=== PATIENT | male | born 1965 | race Caucasian/White ===

== ENCOUNTER → 2022-10-30 14:06 | Outpatient (CLI) | payer OTHER, SELFPAY ==
[2022-10-30 19:35] LABS: Hematocrit 35.3 % (41-53); Hemoglobin 11.7 g/dL (13.5-17.5); Mean Corpuscular HGB Conc 33.2 % (30-36); Mean Corpuscular Hemoglobin 24.9 PG (26-34); Mean Corpuscular Volume 74.8 fL (80-100); Platelet Count 215 X10^3/uL (150-400); Red Blood Cell Count 4.72 X10^6/uL (4.5-5.9); Red Cell Distribution Width 21.4 % (11.6-14.8); White Blood Cell Count 2.4 X10^3/uL (4.5-11.0)
[2022-10-30 19:39] LABS: Alanine Aminotransferase 63 IU/L (<50); Albumin Globulin Ratio 1.5 (1.0-2.8); Alkaline Phosphatase 107 U/L (38-126); Aspartate Aminotransferase 33 IU/L (17-59); BUN Creatinine Ratio 22.1 (6-22); Bilirubin Total 0.3 mg/dL (0.2-1.3); Bilirubin Unconjugated 0.1 mg/dL (0.0-1.1); Blood Urea Nitrogen 25 mg/dL (9-20); Calcium 8.9 mg/dL (8.4-10.2); Carbon Dioxide 26 mmol/L (22-32); Chloride 100 mmol/L (98-107); Estimated Glomerular Filt Rate > 60 mL/min (>60); Gamma Glutamyl Transpeptidase 63 U/L (15-73); Globulin 2.6 g/dL (1.7-4.1); Glucose 115 mg/dL (70-100); HEMOLYSIS < 15 (0-50); Magnesium 1.5 mg/dL (1.6-2.3); Phosphorous 3.2 mg/dL (2.5-4.5); Potassium 3.9 mmol/L (3.4-5.1); Sodium 135 mmol/L (137-145); Total Protein 6.6 g/dL (6.3-8.2)
[2022-10-30 19:50] LABS: Creatinine, Serum (CRCL) 1.14 mg/dL (0.66-1.25)
[2022-10-30 19:51] LABS: Creatinine Urine Random 77.7 mg/dL; Protein (Total) Urine Random 7 mg/dL (0-12)
[2022-10-30 19:54] LABS: Add Manual Diff / Slide Review YES
[2022-10-30 19:58] LABS: Anisocytosis 3+; Neutrophils Absolute Manual 528 /uL (3000-5900); Total Cells Counted 100
[2022-10-30 19:59] LABS: Ovalocytes 1+
[2022-10-30 20:16] LABS: INR 1.2 (0.9-1.3); Prothrombin Time 13.5 SECONDS (10.1-12.7)
[2022-10-30 20:26] LABS: Collection Time Urine 24 Hours; Creatinine Clearance Urine 89.9 mL/MIN; Total Protein 24 Hour Urine 133 mg/day (42-225); Total Volume Urine 1900 mL
[2022-10-31 13:37] LABS: Creat Clearance, Corrected 70.5 mL/MIN; Patient Height Urine 70 inches; Patient Weight Urine 230 lbs
[2022-11-03 13:40] LABS: CMV DNA, Quant Real Time PCR Negative (Negative)
[2022-11-06 07:38] LABS: Tacrolimus 13.2
== END ==
PROVIDERS: Internal Medicine Gastroenterology; Visit Provider Internal Medicine Gastroenterology
DX: Z94.4 Liver transplant status (principal); Z48.298 Encounter for aftercare following other organ transplant; Z79.899 Other long term (current) drug therapy
CPT/HCPCS: 80048; 80076; 80197; 82575; 82977; 83735; 84100; 84156; 85007; 85025; 85610; 87497

== ENCOUNTER → 2023-01-24 10:40 | Outpatient (CLI) | payer OTHER, SELFPAY ==
[2023-01-24 11:52] LABS: Hematocrit 38.5 % (41-53); Mean Corpuscular HGB Conc 33.9 % (30-36); Mean Corpuscular Hemoglobin 28.8 PG (26-34); Mean Corpuscular Volume 85.2 fL (80-100); Platelet Count 124 X10^3/uL (150-400); Red Blood Cell Count 4.52 X10^6/uL (4.5-5.9); Red Cell Distribution Width 15.9 % (11.6-14.8); White Blood Cell Count 11.6 X10^3/uL (4.5-11.0)
[2023-01-24 11:53] LABS: Add Manual Diff / Slide Review YES
[2023-01-24 12:30] LABS: Alanine Aminotransferase 64 IU/L (<50); Albumin Globulin Ratio 1.5 (1.0-2.8); Alkaline Phosphatase 95 U/L (38-126); Aspartate Aminotransferase 42 IU/L (17-59); BUN Creatinine Ratio 23.4 (6-22); Bilirubin Total 0.6 mg/dL (0.2-1.3); Bilirubin Unconjugated 0.5 mg/dL (0.0-1.1); Blood Urea Nitrogen 22 mg/dL (9-20); Calcium 9.4 mg/dL (8.4-10.2); Carbon Dioxide 29 mmol/L (22-32); Chloride 102 mmol/L (98-107); Estimated Glomerular Filt Rate > 60 mL/min (>60); Gamma Glutamyl Transpeptidase 49 U/L (15-73); Globulin 2.6 g/dL (1.7-4.1); Glucose 93 mg/dL (70-100); HEMOLYSIS < 15 (0-50); Magnesium 1.6 mg/dL (1.6-2.3); Phosphorous 2.7 mg/dL (2.5-4.5); Potassium 4.4 mmol/L (3.4-5.1); Sodium 137 mmol/L (137-145); Total Protein 6.6 g/dL (6.3-8.2)
[2023-01-24 12:31] LABS: INR 1.3 (0.9-1.3); Prothrombin Time 15.2 SECONDS (10.1-12.7)
[2023-01-24 13:07] LABS: Hypersegmented Neutrophils 1+; Neutrophils Absolute Manual 2204 /uL (3000-5900); RBC Morphology Normal Morphology; Total Cells Counted 100
[2023-01-26 18:12] LABS: CMV DNA, Quant Real Time PCR Positive < 200 IU/mL (Negative)
[2023-01-27 10:57] LABS: Tacrolimus 7.9
== END ==
PROVIDERS: Referring Provider Internal Medicine Gastroenterology; Visit Provider Internal Medicine Gastroenterology
DX: Z94.4 Liver transplant status (principal); Z48.298 Encounter for aftercare following other organ transplant; Z79.899 Other long term (current) drug therapy
CPT/HCPCS: 36415; 80048; 80076; 80197; 82977; 83735; 84100; 85007; 85025; 85610; 87497

== ENCOUNTER → 2023-07-21 10:02 | Outpatient (CLI) | payer OTHER, SELFPAY ==
[2023-07-21 18:59] LABS: Add Manual Diff / Slide Review NO; Basophils Absolute Auto 100 /uL (0-100); Basophils Percent Auto 0.8 % (0-2); Eosinophils Absolute Auto 200 /uL (0-450); Eosinophils Percent Auto 2.2 % (2-4); Hemoglobin 13.4 g/dL (13.5-17.5); Lymphocytes Absolute Auto 4700 /uL (1100-4500); Lymphocytes Percent Auto 43.2 % (25-40); Mean Corpuscular HGB Conc 33.5 % (30-36); Mean Corpuscular Hemoglobin 26.8 PG (26-34); Mean Corpuscular Volume 79.9 fL (80-100); Monocytes Absolute Auto 900 /uL (0-900); Monocytes Percent Auto 8.3 % (3-14); Neutrophils Absolute Auto 4900 /uL (1500-7000); Neutrophils Percent Auto 45.5 % (50-75); Platelet Count 197 X10^3/uL (150-400); Red Blood Cell Count 5.01 X10^6/uL (4.5-5.9); Red Cell Distribution Width 14.5 % (11.6-14.8); White Blood Cell Count 10.8 X10^3/uL (4.5-11.0)
[2023-07-21 19:07] LABS: Alanine Aminotransferase 26 IU/L (<50); Albumin 3.7 g/dL (3.5-5.0); Albumin Globulin Ratio 1.2 (1.0-2.8); Alkaline Phosphatase 93 U/L (38-126); Aspartate Aminotransferase 26 IU/L (17-59); BUN Creatinine Ratio 26.1 (6-22); Bilirubin Total 0.6 mg/dL (0.2-1.3); Bilirubin Unconjugated 0.3 mg/dL (0.0-1.1); Blood Urea Nitrogen 24 mg/dL (9-20); Calcium 9.4 mg/dL (8.4-10.2); Carbon Dioxide 28 mmol/L (22-32); Chloride 105 mmol/L (98-107); Estimated Glomerular Filt Rate > 60 mL/min (>60); Gamma Glutamyl Transpeptidase 44 U/L (15-73); Globulin 3.2 g/dL (1.7-4.1); Glucose 103 mg/dL (70-100); HEMOLYSIS < 15 (0-50); Magnesium 1.7 mg/dL (1.6-2.3); Phosphorous 2.5 mg/dL (2.5-4.5); Potassium 4.7 mmol/L (3.4-5.1); Sodium 136 mmol/L (137-145); Total Protein 6.9 g/dL (6.3-8.2)
[2023-07-21 19:18] LABS: INR 1.2 (0.9-1.3); Prothrombin Time 13.3 SECONDS (9.4-12.5)
== END ==
PROVIDERS: Visit Provider Internal Medicine Gastroenterology
DX: Z94.4 Liver transplant status (principal); Z48.298 Encounter for aftercare following other organ transplant; Z79.899 Other long term (current) drug therapy
CPT/HCPCS: 80048; 80076; 80197; 82977; 83735; 84100; 85025; 85610

== ENCOUNTER → 2023-08-18 09:57 | Outpatient (CLI) | payer OTHER, SELFPAY ==
[2023-08-18 19:50] LABS: INR 1.2 (0.9-1.3); Prothrombin Time 13.5 SECONDS (9.4-12.5)
[2023-08-18 20:16] LABS: Add Manual Diff / Slide Review NO; Basophils Absolute Auto 100 /uL (0-100); Basophils Percent Auto 0.5 % (0-2); Eosinophils Absolute Auto 300 /uL (0-450); Eosinophils Percent Auto 2.6 % (2-4); Hematocrit 41.1 % (41-53); Hemoglobin 13.9 g/dL (13.5-17.5); Lymphocytes Absolute Auto 6100 /uL (1100-4500); Lymphocytes Percent Auto 55.9 % (25-40); Mean Corpuscular HGB Conc 33.8 % (30-36); Mean Corpuscular Hemoglobin 26.8 PG (26-34); Mean Corpuscular Volume 79.4 fL (80-100); Monocytes Absolute Auto 900 /uL (0-900); Monocytes Percent Auto 8.3 % (3-14); Neutrophils Absolute Auto 3600 /uL (1500-7000); Neutrophils Percent Auto 32.7 % (50-75); Platelet Count 171 X10^3/uL (150-400); Red Blood Cell Count 5.17 X10^6/uL (4.5-5.9); Red Cell Distribution Width 15.2 % (11.6-14.8); White Blood Cell Count 10.9 X10^3/uL (4.5-11.0)
[2023-08-18 20:31] LABS: Alanine Aminotransferase 34 IU/L (<50); Albumin Globulin Ratio 1.3 (1.0-2.8); Alkaline Phosphatase 95 U/L (38-126); Aspartate Aminotransferase 33 IU/L (17-59); BUN Creatinine Ratio 17.2 (6-22); Bilirubin Total 0.7 mg/dL (0.2-1.3); Bilirubin Unconjugated 0.5 mg/dL (0.0-1.1); Blood Urea Nitrogen 20 mg/dL (9-20); Calcium 9.7 mg/dL (8.4-10.2); Carbon Dioxide 25 mmol/L (22-32); Chloride 105 mmol/L (98-107); Estimated Glomerular Filt Rate > 60 mL/min (>60); Gamma Glutamyl Transpeptidase 37 U/L (15-73); Glucose 118 mg/dL (70-100); HEMOLYSIS < 15 (0-50); Magnesium 1.6 mg/dL (1.6-2.3); Phosphorous 3.2 mg/dL (2.5-4.5); Potassium 4.8 mmol/L (3.4-5.1); Sodium 137 mmol/L (137-145)
== END ==
PROVIDERS: Internal Medicine Gastroenterology
DX: Z48.298 Encounter for aftercare following other organ transplant (principal); Z94.4 Liver transplant status; Z79.899 Other long term (current) drug therapy
CPT/HCPCS: 80048; 80076; 80197; 82977; 83735; 84100; 85025; 85610

== ENCOUNTER → 2023-09-12 09:10 | Outpatient (CLI) | payer OTHER, SELFPAY ==
[2023-09-12 19:23] LABS: Add Manual Diff / Slide Review NO; Basophils Absolute Auto 0 /uL (0-100); Basophils Percent Auto 0.5 % (0-2); Eosinophils Absolute Auto 300 /uL (0-450); Eosinophils Percent Auto 3.1 % (2-4); Hemoglobin 13.6 g/dL (13.5-17.5); Lymphocytes Absolute Auto 4100 /uL (1100-4500); Lymphocytes Percent Auto 48.6 % (25-40); Mean Corpuscular HGB Conc 33.9 % (30-36); Mean Corpuscular Hemoglobin 27.1 PG (26-34); Mean Corpuscular Volume 79.8 fL (80-100); Monocytes Absolute Auto 500 /uL (0-900); Monocytes Percent Auto 6.4 % (3-14); Neutrophils Absolute Auto 3500 /uL (1500-7000); Neutrophils Percent Auto 41.4 % (50-75); Platelet Count 164 X10^3/uL (150-400); Red Blood Cell Count 5.02 X10^6/uL (4.5-5.9); Red Cell Distribution Width 14.9 % (11.6-14.8); White Blood Cell Count 8.4 X10^3/uL (4.5-11.0)
[2023-09-12 19:30] LABS: Alanine Aminotransferase 31 IU/L (<50); Albumin 4.2 g/dL (3.5-5.0); Albumin Globulin Ratio 1.6 (1.0-2.8); Alkaline Phosphatase 93 U/L (38-126); Aspartate Aminotransferase 35 IU/L (17-59); BUN Creatinine Ratio 16.7 (6-22); Bilirubin Total 0.7 mg/dL (0.2-1.3); Bilirubin Unconjugated 0.2 mg/dL (0.0-1.1); Blood Urea Nitrogen 23 mg/dL (9-20); Calcium 9.1 mg/dL (8.4-10.2); Carbon Dioxide 24 mmol/L (22-32); Chloride 105 mmol/L (98-107); Estimated Glomerular Filt Rate 59 mL/min (>60); Gamma Glutamyl Transpeptidase 32 U/L (15-73); Globulin 2.7 g/dL (1.7-4.1); Glucose 115 mg/dL (70-100); HEMOLYSIS < 15 (0-50); Magnesium 1.6 mg/dL (1.6-2.3); Phosphorous 2.9 mg/dL (2.5-4.5); Potassium 4.7 mmol/L (3.4-5.1); Sodium 137 mmol/L (137-145); Total Protein 6.9 g/dL (6.3-8.2)
[2023-09-12 19:37] LABS: INR 1.1 (0.9-1.3); Prothrombin Time 12.9 SECONDS (9.4-12.5)
[2023-09-12 19:58] LABS: Testosterone 171 ng/dL (71.8-623)
== END ==
DX: Z48.298 Encounter for aftercare following other organ transplant (principal); M62.81 Muscle weakness (generalized); R68.82 Decreased libido; R60.0 Localized edema; E03.8 Other specified hypothyroidism; Z94.4 Liver transplant status; Z79.899 Other long term (current) drug therapy
CPT/HCPCS: 80048; 80076; 80197; 82977; 83735; 84100; 84270; 84403; 84439; 84443; 85025; 85610

== ENCOUNTER → 2023-10-13 09:44 | Outpatient (CLI) | payer OTHER, SELFPAY ==
[2023-10-13 19:51] LABS: INR 1.1 (0.9-1.3); Prothrombin Time 12.5 SECONDS (9.4-12.5)
[2023-10-13 20:02] LABS: Add Manual Diff / Slide Review NO; Basophils Absolute Auto 100 /uL (0-100); Basophils Percent Auto 0.7 % (0-2); Eosinophils Absolute Auto 200 /uL (0-450); Eosinophils Percent Auto 2.8 % (2-4); Hematocrit 40.9 % (41-53); Lymphocytes Absolute Auto 4200 /uL (1100-4500); Lymphocytes Percent Auto 48.4 % (25-40); Mean Corpuscular HGB Conc 34.1 % (30-36); Mean Corpuscular Hemoglobin 27.3 PG (26-34); Monocytes Absolute Auto 600 /uL (0-900); Monocytes Percent Auto 7.1 % (3-14); Neutrophils Absolute Auto 3600 /uL (1500-7000); Platelet Count 178 X10^3/uL (150-400); Red Blood Cell Count 5.12 X10^6/uL (4.5-5.9); Red Cell Distribution Width 13.9 % (11.6-14.8); White Blood Cell Count 8.7 X10^3/uL (4.5-11.0)
[2023-10-13 20:08] LABS: Alanine Aminotransferase 29 IU/L (<50); Albumin 4.3 g/dL (3.5-5.0); Albumin Globulin Ratio 1.4 (1.0-2.8); Alkaline Phosphatase 101 U/L (38-126); Aspartate Aminotransferase 32 IU/L (17-59); BUN Creatinine Ratio 19.3 (6-22); Bilirubin Total 0.7 mg/dL (0.2-1.3); Bilirubin Unconjugated 0.1 mg/dL (0.0-1.1); Blood Urea Nitrogen 22 mg/dL (9-20); Calcium 9.3 mg/dL (8.4-10.2); Carbon Dioxide 26 mmol/L (22-32); Chloride 106 mmol/L (98-107); Estimated Glomerular Filt Rate > 60 mL/min (>60); Gamma Glutamyl Transpeptidase 39 U/L (15-73); Globulin 3.1 g/dL (1.7-4.1); Glucose 108 mg/dL (70-100); HEMOLYSIS < 15 (0-50); Magnesium 1.9 mg/dL (1.6-2.3); Phosphorous 2.6 mg/dL (2.5-4.5); Sodium 137 mmol/L (137-145); Total Protein 7.4 g/dL (6.3-8.2)
[2023-10-13 20:33] LABS: TSH w/ Reflex to FT4 4.61 uIU/mL (0.47-4.68)
[2023-10-13 20:37] LABS: Testosterone 127 ng/dL (71.8-623)
[2023-10-15 07:11] LABS: Tacrolimus 8.6 ng/mL (2.0-20.0)
== END ==
PROVIDERS: Internal Medicine Gastroenterology
DX: Z48.298 Encounter for aftercare following other organ transplant (principal); E03.8 Other specified hypothyroidism; R79.89 Other specified abnormal findings of blood chemistry; M62.81 Muscle weakness (generalized); Z94.4 Liver transplant status; Z79.899 Other long term (current) drug therapy
CPT/HCPCS: 80048; 80076; 80197; 82977; 83735; 84100; 84403; 84443; 85025; 85610

== ENCOUNTER → 2023-11-10 10:17 | Outpatient (CLI) | payer OTHER, SELFPAY ==
[2023-11-10 20:25] LABS: Alanine Aminotransferase 21 IU/L (<50); Albumin 4.1 g/dL (3.5-5.0); Albumin Globulin Ratio 1.5 (1.0-2.8); Alkaline Phosphatase 90 U/L (38-126); Aspartate Aminotransferase 26 IU/L (17-59); BUN Creatinine Ratio 21.7 (6-22); Bilirubin Total 0.6 mg/dL (0.2-1.3); Bilirubin Unconjugated 0.1 mg/dL (0.0-1.1); Blood Urea Nitrogen 26 mg/dL (9-20); Carbon Dioxide 24 mmol/L (22-32); Chloride 106 mmol/L (98-107); Estimated Glomerular Filt Rate > 60 mL/min (>60); Gamma Glutamyl Transpeptidase 26 U/L (15-73); Globulin 2.7 g/dL (1.7-4.1); Glucose 114 mg/dL (70-100); HEMOLYSIS < 15 (0-50); INR 1.1 (0.9-1.3); Magnesium 1.6 mg/dL (1.6-2.3); Phosphorous 2.8 mg/dL (2.5-4.5); Potassium 4.7 mmol/L (3.4-5.1); Prothrombin Time 12.5 SECONDS (9.4-12.5); Sodium 137 mmol/L (137-145); Total Protein 6.8 g/dL (6.3-8.2)
[2023-11-10 20:33] LABS: Add Manual Diff / Slide Review NO; Basophils Absolute Auto 0 /uL (0-100); Basophils Percent Auto 0.4 % (0-2); Eosinophils Absolute Auto 200 /uL (0-450); Eosinophils Percent Auto 2.6 % (2-4); Hematocrit 38.3 % (41-53); Hemoglobin 12.9 g/dL (13.5-17.5); Lymphocytes Absolute Auto 4600 /uL (1100-4500); Lymphocytes Percent Auto 55.2 % (25-40); Mean Corpuscular HGB Conc 33.8 % (30-36); Mean Corpuscular Hemoglobin 26.9 PG (26-34); Mean Corpuscular Volume 79.5 fL (80-100); Monocytes Absolute Auto 500 /uL (0-900); Monocytes Percent Auto 6.4 % (3-14); Neutrophils Absolute Auto 3000 /uL (1500-7000); Neutrophils Percent Auto 35.4 % (50-75); Platelet Count 171 X10^3/uL (150-400); Red Blood Cell Count 4.82 X10^6/uL (4.5-5.9); Red Cell Distribution Width 13.8 % (11.6-14.8); White Blood Cell Count 8.3 X10^3/uL (4.5-11.0)
== END ==
PROVIDERS: Internal Medicine Gastroenterology
DX: Z94.4 Liver transplant status (principal); Z48.298 Encounter for aftercare following other organ transplant; Z79.899 Other long term (current) drug therapy
CPT/HCPCS: 80048; 80076; 80197; 82977; 83735; 84100; 85025; 85610

== ENCOUNTER → 2023-12-17 10:12 | Outpatient (CLI) | payer OTHER, SELFPAY ==
[2023-12-17 20:11] LABS: INR 1.2 (0.9-1.3); Prothrombin Time 13.5 SECONDS (9.4-12.5)
[2023-12-17 20:39] LABS: Add Manual Diff / Slide Review NO; Basophils Absolute Auto 0 /uL (0-100); Basophils Percent Auto 0.3 % (0-2); Eosinophils Absolute Auto 300 /uL (0-450); Eosinophils Percent Auto 2.8 % (2-4); Hematocrit 41.6 % (41-53); Hemoglobin 14.2 g/dL (13.5-17.5); Lymphocytes Absolute Auto 5200 /uL (1100-4500); Lymphocytes Percent Auto 53.7 % (25-40); Mean Corpuscular HGB Conc 34.1 % (30-36); Mean Corpuscular Hemoglobin 26.8 PG (26-34); Mean Corpuscular Volume 78.7 fL (80-100); Monocytes Absolute Auto 700 /uL (0-900); Monocytes Percent Auto 7.3 % (3-14); Neutrophils Absolute Auto 3500 /uL (1500-7000); Neutrophils Percent Auto 35.9 % (50-75); Platelet Count 174 X10^3/uL (150-400); Red Blood Cell Count 5.29 X10^6/uL (4.5-5.9); Red Cell Distribution Width 14.1 % (11.6-14.8); White Blood Cell Count 9.7 X10^3/uL (4.5-11.0)
[2023-12-17 20:51] LABS: Alanine Aminotransferase 49 IU/L (<50); Albumin 4.2 g/dL (3.5-5.0); Albumin Globulin Ratio 1.4 (1.0-2.8); Alkaline Phosphatase 109 U/L (38-126); Aspartate Aminotransferase 41 IU/L (17-59); BUN Creatinine Ratio 16.9 (6-22); Bilirubin Total 0.7 mg/dL (0.2-1.3); Bilirubin Unconjugated 0.2 mg/dL (0.0-1.1); Blood Urea Nitrogen 21 mg/dL (9-20); Calcium 9.7 mg/dL (8.4-10.2); Carbon Dioxide 26 mmol/L (22-32); Chloride 103 mmol/L (98-107); Estimated Glomerular Filt Rate > 60 mL/min (>60); Gamma Glutamyl Transpeptidase 50 U/L (15-73); Globulin 2.9 g/dL (1.7-4.1); Glucose 100 mg/dL (70-100); HEMOLYSIS 17 (0-50); Magnesium 1.6 mg/dL (1.6-2.3); Phosphorous 3.1 mg/dL (2.5-4.5); Potassium 4.7 mmol/L (3.4-5.1); Sodium 136 mmol/L (137-145); Total Protein 7.1 g/dL (6.3-8.2)
== END ==
PROVIDERS: Internal Medicine Gastroenterology
DX: Z94.4 Liver transplant status (principal); Z79.899 Other long term (current) drug therapy; Z48.298 Encounter for aftercare following other organ transplant
CPT/HCPCS: 80048; 80076; 80197; 82977; 83735; 84100; 85025; 85610

== ENCOUNTER → 2024-06-21 11:33 | Outpatient (CLI) | payer OTHER, SELFPAY ==
[2024-06-21 18:49] LABS: Prothrombin Time 11.4 SECONDS (9.4-12.5)
[2024-06-21 18:53] LABS: Add Manual Diff / Slide Review NO; Basophils Absolute Auto 0 /uL (0-100); Basophils Percent Auto 0.3 % (0-2); Eosinophils Absolute Auto 300 /uL (0-450); Eosinophils Percent Auto 3.1 % (2-4); Hematocrit 43.2 % (41-53); Hemoglobin 14.6 g/dL (13.5-17.5); Lymphocytes Absolute Auto 5400 /uL (1100-4500); Lymphocytes Percent Auto 57.3 % (25-40); Mean Corpuscular HGB Conc 33.9 % (30-36); Mean Corpuscular Hemoglobin 26.8 PG (26-34); Monocytes Absolute Auto 600 /uL (0-900); Monocytes Percent Auto 6.2 % (3-14); Neutrophils Absolute Auto 3100 /uL (1500-7000); Neutrophils Percent Auto 33.1 % (50-75); Platelet Count 177 X10^3/uL (150-400); Red Blood Cell Count 5.46 X10^6/uL (4.5-5.9); Red Cell Distribution Width 14.5 % (11.6-14.8); White Blood Cell Count 9.4 X10^3/uL (4.5-11.0)
[2024-06-21 19:11] LABS: Alanine Aminotransferase 29 IU/L (<50); Albumin 4.4 g/dL (3.5-5.0); Albumin Globulin Ratio 1.6 (1.0-2.8); Alkaline Phosphatase 91 U/L (38-126); Aspartate Aminotransferase 32 IU/L (17-59); BUN Creatinine Ratio 18.7 (6-22); Bilirubin Total 0.7 mg/dL (0.2-1.3); Bilirubin Unconjugated 0.4 mg/dL (0.0-1.1); Blood Urea Nitrogen 20 mg/dL (9-20); Calcium 9.2 mg/dL (8.4-10.2); Carbon Dioxide 24 mmol/L (22-32); Chloride 104 mmol/L (98-107); Estimated Glomerular Filt Rate > 60 mL/min (>60); Gamma Glutamyl Transpeptidase 30 U/L (15-73); Globulin 2.8 g/dL (1.7-4.1); Glucose 99 mg/dL (70-100); HEMOLYSIS < 15 (0-50); Magnesium 1.6 mg/dL (1.6-2.3); Phosphorous 2.8 mg/dL (2.5-4.5); Sodium 136 mmol/L (137-145); Total Protein 7.2 g/dL (6.3-8.2)
[2024-06-23 02:40] LABS: Tacrolimus 7.8 ng/mL (5.0-20.0)
== END ==
PROVIDERS: Visit Provider Internal Medicine Gastroenterology
DX: Z48.298 Encounter for aftercare following other organ transplant (principal); Z94.4 Liver transplant status; Z79.899 Other long term (current) drug therapy
CPT/HCPCS: 80048; 80076; 80197; 82977; 83735; 84100; 85025; 85610

== ENCOUNTER → 2024-10-19 11:10 | Outpatient (CLI) | payer OTHER, SELFPAY ==
[2024-10-19 20:55] LABS: INR 1.1 (0.9-1.3); Prothrombin Time 12.8 SECONDS (9.4-12.5)
[2024-10-19 21:07] LABS: Add Manual Diff / Slide Review NO; Hematocrit 42.0 % (41-53); Hemoglobin 14.3 g/dL (13.5-17.5); Lymphocytes Absolute Auto 5100 /uL (1100-4500); Mean Corpuscular HGB Conc 34.1 % (30-36); Mean Corpuscular Hemoglobin 27.8 PG (26-34); Mean Corpuscular Volume 81.6 fL (80-100); Platelet Count 167 X10^3/uL (150-400)
[2024-10-19 21:12] LABS: Alanine Aminotransferase 24 IU/L (<50); Albumin 4.3 g/dL (3.5-5.0); Albumin Globulin Ratio 1.5 (1.0-2.8); Alkaline Phosphatase 112 U/L (38-126); Blood Urea Nitrogen 31 mg/dL (9-20); Calcium 9.4 mg/dL (8.4-10.2); Carbon Dioxide 24 mmol/L (22-32); Chloride 104 mmol/L (98-107); Estimated Glomerular Filt Rate > 60 mL/min (>60); Gamma Glutamyl Transpeptidase 32 U/L (15-73); Globulin 2.8 g/dL (1.7-4.1); Glucose 105 mg/dL (70-99); HEMOLYSIS 15 (0-50); Magnesium 1.7 mg/dL (1.6-2.3); Phosphorous 2.5 mg/dL (2.5-4.5); Potassium 4.9 mmol/L (3.4-5.1); Sodium 136 mmol/L (137-145); Total Protein 7.1 g/dL (6.3-8.2)
== END ==
PROVIDERS: Visit Provider Internal Medicine Gastroenterology
DX: Z48.298 Encounter for aftercare following other organ transplant (principal); Z94.4 Liver transplant status; Z79.899 Other long term (current) drug therapy
CPT/HCPCS: 80048; 80076; 80197; 82977; 83735; 84100; 85025; 85610

== ENCOUNTER → 2024-11-15 11:15 | Outpatient (CLI) | payer OTHER, SELFPAY ==
[2024-11-15 19:00] LABS: Add Manual Diff / Slide Review NO; Hematocrit 44.0 % (41-53); Hemoglobin 15.1 g/dL (13.5-17.5); Lymphocytes Absolute Auto 5000 /uL (1100-4500); Mean Corpuscular HGB Conc 34.4 % (30-36); Mean Corpuscular Hemoglobin 27.8 PG (26-34); Mean Corpuscular Volume 80.7 fL (80-100); Platelet Count 170 X10^3/uL (150-400)
[2024-11-15 19:08] LABS: Alanine Aminotransferase 26 IU/L (<50); Albumin 4.4 g/dL (3.5-5.0); Albumin Globulin Ratio 1.5 (1.0-2.8); Alkaline Phosphatase 102 U/L (38-126); Blood Urea Nitrogen 23 mg/dL (9-20); Calcium 9.7 mg/dL (8.4-10.2); Carbon Dioxide 26 mmol/L (22-32); Chloride 103 mmol/L (98-107); Estimated Glomerular Filt Rate > 60 mL/min (>60); Gamma Glutamyl Transpeptidase 35 U/L (15-73); Globulin 2.9 g/dL (1.7-4.1); Glucose 94 mg/dL (70-99); HEMOLYSIS < 15 (0-50); Magnesium 1.4 mg/dL (1.6-2.3); Phosphorous 2.6 mg/dL (2.5-4.5); Potassium 4.7 mmol/L (3.4-5.1); Sodium 137 mmol/L (137-145); Total Protein 7.3 g/dL (6.3-8.2)
[2024-11-15 19:22] LABS: INR 1.2 (0.9-1.3); Prothrombin Time 13.3 SECONDS (9.4-12.5)
== END ==
PROVIDERS: Visit Provider Internal Medicine Gastroenterology
DX: Z48.298 Encounter for aftercare following other organ transplant (principal); Z94.4 Liver transplant status; Z79.899 Other long term (current) drug therapy
CPT/HCPCS: 80048; 80076; 80197; 82977; 83735; 84100; 85025; 85610

== ENCOUNTER → 2024-12-31 08:31 | Outpatient (CLI) | payer OTHER, SELFPAY ==
[2024-12-31 18:40] LABS: INR 1.1 (0.9-1.3); Prothrombin Time 12.1 SECONDS (9.4-12.5)
[2024-12-31 18:55] LABS: Alanine Aminotransferase 29 IU/L (<50); Albumin 4.4 g/dL (3.5-5.0); Albumin Globulin Ratio 1.5 (1.0-2.8); Alkaline Phosphatase 96 U/L (38-126); Blood Urea Nitrogen 24 mg/dL (9-20); Calcium 9.4 mg/dL (8.4-10.2); Carbon Dioxide 24 mmol/L (22-32); Chloride 104 mmol/L (98-107); Estimated Glomerular Filt Rate > 60 mL/min (>60); Gamma Glutamyl Transpeptidase 35 U/L (15-73); Globulin 3.0 g/dL (1.7-4.1); Glucose 97 mg/dL (70-99); HEMOLYSIS 17 (0-50); Magnesium 1.6 mg/dL (1.6-2.3); Phosphorous 2.8 mg/dL (2.3-3.7); Potassium 4.6 mmol/L (3.4-5.1); Sodium 138 mmol/L (137-145); Total Protein 7.4 g/dL (6.3-8.2)
[2024-12-31 19:13] LABS: Add Manual Diff / Slide Review NO; Hematocrit 45.0 % (41-53); Hemoglobin 15.4 g/dL (13.5-17.5); Lymphocytes Absolute Auto 4900 /uL (1100-4500); Mean Corpuscular HGB Conc 34.1 % (30-36); Mean Corpuscular Hemoglobin 27.2 PG (26-34); Mean Corpuscular Volume 79.6 fL (80-100); Platelet Count 172 X10^3/uL (150-400)
== END ==
PROVIDERS: Visit Provider Internal Medicine Gastroenterology
DX: Z48.298 Encounter for aftercare following other organ transplant (principal); Z94.4 Liver transplant status; Z79.891 Long term (current) use of opiate analgesic
CPT/HCPCS: 80048; 80076; 80197; 82977; 83735; 84100; 85025; 85610

== ENCOUNTER → 2025-02-22 11:07 | Outpatient (CLI) | payer OTHER, SELFPAY ==
[2025-02-22 19:21] LABS: Add Manual Diff / Slide Review NO; Hematocrit 45.8 % (41-53); Hemoglobin 15.5 g/dL (13.5-17.5); Lymphocytes Absolute Auto 4800 /uL (1100-4500); Mean Corpuscular HGB Conc 33.8 % (30-36); Mean Corpuscular Hemoglobin 27.2 PG (26-34); Mean Corpuscular Volume 80.6 fL (80-100); Platelet Count 172 X10^3/uL (150-400)
[2025-02-22 19:29] LABS: Alanine Aminotransferase 26 IU/L (<50); Albumin 4.5 g/dL (3.5-5.0); Albumin Globulin Ratio 1.6 (1.0-2.8); Alkaline Phosphatase 96 U/L (38-126); Blood Urea Nitrogen 23 mg/dL (9-20); Calcium 9.4 mg/dL (8.4-10.2); Carbon Dioxide 25 mmol/L (22-32); Chloride 102 mmol/L (98-107); Estimated Glomerular Filt Rate > 60 mL/min (>60); Gamma Glutamyl Transpeptidase 31 U/L (15-73); Globulin 2.9 g/dL (1.7-4.1); Glucose 121 mg/dL (70-99); HEMOLYSIS < 15 (0-50); Magnesium 1.5 mg/dL (1.6-2.3); Phosphorous 2.4 mg/dL (2.3-3.7); Potassium 4.1 mmol/L (3.4-5.1); Sodium 137 mmol/L (137-145); Total Protein 7.4 g/dL (6.3-8.2)
[2025-02-22 19:30] LABS: INR 1.2 (0.9-1.3); Prothrombin Time 13.6 SECONDS (9.4-12.5)
== END ==
PROVIDERS: Visit Provider Internal Medicine Gastroenterology
DX: Z94.4 Liver transplant status (principal); Z79.899 Other long term (current) drug therapy; Z48.298 Encounter for aftercare following other organ transplant
CPT/HCPCS: 80048; 80076; 80197; 82977; 83735; 84100; 85025; 85610